=== PATIENT | female | born 1985 | race Caucasian/White ===

== ENCOUNTER 2022-01-20 18:27 | Emergency (ER) | payer MEDICAID ==
[~2022-01-20] VITALS: Ht 162.6 cm; Wt 82.6 kg
[2022-01-20 19:12] VITALS: BP 137/87
--- NOTE | 2022-01-20 20:13 | NUR ---
SWABS CLLECTED AND SENT TO LAB.
--- NOTE | 2022-01-20 21:23 | NUR ---
CALLED PT TO LOBBY AND OUTSIDE, NO ANSWER.
--- NOTE | 2022-01-20 21:52 | NUR ---
called pt phone number. no answer.
--- NOTE | 2022-01-20 22:02 | NUR ---
PATIENT ELOPED FROM FACILITY. DISCHARGE INSTRUCTIONS NOT GIVEN TO PATIENT. DR. wong NOTIFIED.
[2022-01-20 23:16] LABS: APPEARANCE,URINE CLEAR (CLEAR); BILIRUBIN,URINE NEGATIVE (NEGATIVE); BLOOD, URINE TRACE-L (NEGATIVE); COLOR,URINE YELLOW (YELLOW); LEUKOCYTE ESTERASE ,URINE TRACE (NEGATIVE); NITRITE, URINE NEGATIVE (NEGATIVE); PH,URINE 6.5 (5.0-9.0); UGLUCOSE NEGATIVE (NEGATIVE)
[2022-01-20 23:57] LABS: RBC,URINE 0-5 /HPF (0-5)
== END 2022-01-20 22:02 | disposition left against medical advice (07) ==
LOC: MED 18:27
DX: U07.1 COVID-19 (principal); M54.50 Low back pain, unspecified
CPT/HCPCS: 81001; 81002; 81025; 87086; 99283

== ENCOUNTER 2022-05-31 17:32 | Emergency (ER) | payer MEDICAID ==
[~2022-05-31] VITALS: Ht 165.1 cm; Wt 80.7 kg
[2022-05-31 18:06] VITALS: BP 116/61
[2022-05-31] MEDS ORDERED: IBUP-1842 PO (19:27)
[2022-05-31] MEDS ORDERED: BENZ150C2 PO (19:27)
[2022-05-31 20:07] VITALS: BP 119/79
== END 2022-05-31 19:50 | disposition home or self-care (01) ==
LOC: MED 17:32
DX: J06.9 Acute upper respiratory infection, unspecified (principal); Z20.822 Contact with and (suspected) exposure to COVID-19; Z79.899 Other long term (current) drug therapy; Z79.1 Long term (current) use of non-steroidal anti-inflammatories (NSAID)
CPT/HCPCS: 99283